=== PATIENT | male | born 1950 | race Caucasian/White ===

== ENCOUNTER 2017-08-20 20:30 | Outpatient (CLI) | payer BC | END 2017-08-20 20:31 | disposition home or self-care (01) | LOC: SLEEPLAB 20:30 | PROVIDERS: ATTEND Otolaryngology Plastic Surgery within the Head & Neck | DX: G47.33 Obstructive sleep apnea (adult) (pediatric) (principal); I10 Essential (primary) hypertension | CPT/HCPCS: 95811 ==

== ENCOUNTER 2017-08-22 10:34 | Day surgery (SDC) | payer BC ==
[2017-08-21 13:40] VITALS: BMI 27.1
--- NOTE | 2017-08-22 14:48 | OP ---
DATE OF PROCEDURE: 08/22/2017 PROCEDURE PERFORMED: Colonoscopy with snare polypectomy. PHYSICIAN: Rich Gamboa M.D. MEDICATIONS: Given by Anesthesiology department. PREOPERATIVE DIAGNOSIS: Screening. POSTOPERATIVE DIAGNOSES: 1. Two colon polyps, cecal and transverse, removed. 2. Otherwise normal colon exam. PROCEDURE IN DETAIL: Written consent was obtained prior to procedure. After adequate sedation, a re ctal exam was performed and was normal. Endoscope was advanced to the cecum. The quality of the bow el prep was good. In the cecum next to the appendiceal orifice, a 5 mm sessile polyp was noted and w as removed with a cold snare. The polyp was retrieved. The ileocecal valve, ascending colon, hepati c flexure, and transverse colon appeared normal. In the distal transverse colon, a 3 mm sessile poly p was noted and was removed with a cold snare and was retrieved. At the splenic flexure, descending colon, sigmoid colon, and rectosigmoid colon all appeared normal. Retroflexion was normal. The ernie ent tolerated the procedure well without any immediate complication. ASSESSMENT: 1. Cecal polyp and transverse colon polyp, status post polypectomy. 2. Otherwise normal colon exam. RECOMMENDATIONS: Await biopsy result.
[2017-08-22] MEDS ORDERED: Lidocaine 1% PF 5 ML VIAL ONE (16:56)
== END 2017-08-22 13:10 | disposition home or self-care (01) ==
LOC: SDC 10:34
PROVIDERS: ATTEND Internal Medicine Gastroenterology
PROC: 0DBH8ZX Excision of Cecum, Via Natural or Artificial Opening Endoscopic, Diagnostic (ICD-10-PCS; principal; 2017-08-22)
PROC: 0DBL8ZX Excision of Transverse Colon, Via Natural or Artificial Opening Endoscopic, Diagnostic (ICD-10-PCS; principal; 2017-08-22)
DX: Z12.11 Encounter for screening for malignant neoplasm of colon (principal); D12.3 Benign neoplasm of transverse colon; D12.0 Benign neoplasm of cecum; N48.6 Induration penis plastica; I10 Essential (primary) hypertension; E78.5 Hyperlipidemia, unspecified; M19.90 Unspecified osteoarthritis, unspecified site; K21.9 Gastro-esophageal reflux disease without esophagitis; Z79.82 Long term (current) use of aspirin; Z79.899 Other long term (current) drug therapy; Z90.89 Acquired absence of other organs; Z98.890 Other specified postprocedural states
CPT/HCPCS: 88305; J2001

== ENCOUNTER 2020-07-31 05:38 | Inpatient (IN) | payer MEDICARE, OTHER ==
[2020-07-25 12:31] VITALS: BMI 27.1
--- NOTE | 2020-07-28 11:51 | HP ---
HISTORY OF PRESENT ILLNESS: The patient is a 70-year-old male with a several year history of progressive problems with the left knee. He has had no injury. He has had progressive pain despite rest, restriction of activities, use of anti-inflammatory medication, and previous cortisone injection. The pain is now interfering with day-to-day activities including walking, getting dressed, and sleeping. PAST MEDICAL HISTORY: The patient is, otherwise, in good health. He has a history of thyroid replacement and hypertension. He has had previous laryngeal cancer approximately 3 years ago, which required surgery and postoperative radiation without recurrence. CURRENT MEDICATIONS: Include: 1. Levothyroxine. 2. Lisinopril. 3. Rosuvastatin. ALLERGIES: HE HAS NO KNOWN ALLERGIES. FAMILY HISTORY: Otherwise, unremarkable. SOCIAL HISTORY: Otherwise, unremarkable. REVIEW OF SYSTEMS: Otherwise, unremarkable. PHYSICAL EXAMINATION: GENERAL: Reveals a healthy male. HEENT: Unremarkable. NECK: Supple. CHEST: Clear. HEART: Regular rate and rhythm. ABDOMEN: Soft, nontender. RECTAL: Deferred. GENITOURINARY: Deferred. EXTREMITIES: Pertinent findings related to the left knee; there is mild varus. There is puffiness. No definite effusion. There is tenderness and crepitus over the medial joint line. Range of motion is 5 to 125 degrees. There is no instability. Neurovascular exam is intact. Pulses are 1+. He has a left antalgic gait. DIAGNOSTIC STUDIES: X-rays of the left knee reveal narrowing medially with minimal joint space remaining. IMPRESSION: 1. Degenerative arthritis, left knee. 2. History of hypertension. 3. History of thyroid replacement. 4. History of laryngeal cancer. PLAN: Left total knee replacement. The nature of the surgery, length of recovery, and potential complications such as infection, loss of motion, incomplete relief, thromboembolic phenomena, neurovascular injury and possible transfusion, and need for revision have been discussed in detail. Job ID: [id number]
[2020-07-31] MEDS ORDERED: Midazolam HCl 2 mg/2 ml Vial ONE (06:29)
[2020-07-31] MEDS ORDERED: Fentanyl 100 MCG/2 ML VIAL ONE ×2 (06:29→07:06)
[2020-07-31] MEDS ORDERED: Lidocaine 1% (PF) 30 ML VIAL ONE (06:29)
[2020-07-31] MEDS ORDERED: Sodium Chloride 0.9% 100 ML ONE ×2 (06:35→09:23)
[2020-07-31] MEDS ORDERED: Tranexamic Acid 1,000 MG/10 ML VIAL ONE ×2 (06:35→09:22)
[2020-07-31] MEDS ORDERED: Vancomycin 1.5 GRAM/300 ML BAG ONE (06:35)
[2020-07-31] MEDS ORDERED: Fentanyl 100 MCG/2 ML VIAL IV PRN (07:03)
[2020-07-31] MEDS ORDERED: Dexmedetomidine 200 MCG/2 ML VIAL ONE (07:07)
[2020-07-31] MEDS ORDERED: traMADol HCl 50 MG TAB PO PRN ×3 (07:15→10:38)
[2020-07-31] MEDS ORDERED: Zolpidem Tartrate 5 MG TAB PO PRN ×2 (07:15→10:38)
[2020-07-31] MEDS ORDERED: Ondansetron PF 4 MG/2 ML Vial IVP PRN ×2 (07:15→10:38)
[2020-07-31] MEDS ORDERED: HYDROcodone/Acetaminophen 10/325 mg Tablet PO PRN ×3 (07:15→10:38)
[2020-07-31] MEDS ORDERED: Promethazine HCl 25 MG/ML VIAL IM PRN (07:15)
[2020-07-31] MEDS ORDERED: Ropivacaine HCl/PF 250 ML in Premix Bag 1 BAG NERVE BLCK SCH (07:15)
[2020-07-31] MEDS ORDERED: Lidocaine 1% w/Epinephrine 1:100K 20 ML VIAL ONE (07:47)
[2020-07-31] MEDS ORDERED: Bupivacaine 0.25% HCL 30 ML VIAL ONE (07:47)
[2020-07-31] MEDS ORDERED: Tranexamic Acid 1,000 MG in Sodium Chloride 0.9% 100 ML IVPB SCH ×2 (09:15→10:38)
--- NOTE | 2020-07-31 09:41 | OP ---
DATE OF PROCEDURE: 07/31/2020 AIR CONDITIONING TECHNICIAN: ANDREW Driver. The marketing assistant manager co-surgeon was present through the entire procedure and was responsible for providing exposure, tissue retraction, and any necessary limb or tissue manipulation required to obtain necessary reduction or hardware placement. The marketing assistant manager co-surgeon also provided bleeding control, tissue closure, and suturing in conjunction with the primary surgeon. ANESTHESIA: General plus adductor canal and sciatic nerve blocks. PREOPERATIVE DIAGNOSIS: Degenerative arthritis, left knee. POSTOPERATIVE DIAGNOSIS: Degenerative arthritis, left knee. PROCEDURES PERFORMED: Left total knee replacement with computer-assisted navigation with cemented [place] [employer] components (#5 femoral component, #6 primary tibial baseplate with 11 mm CS plastic insert, and all-plastic A35 patellar component). DESCRIPTION OF PROCEDURE: After satisfactory anesthesia was induced in supine position, sequential compression device was placed on the nonoperative leg throughout the procedure. The left leg was then prepped and draped in routine sterile fashion. The leg was elevated and exsanguinated with an Esmarch bandage and the tourniquet inflated to 300 mmHg. A gently curved medial parapatellar incision was made. The subcutaneous tissues and bleeding points were controlled with Bovie cautery. Medial parapatellar arthrotomy was performed. Patella was dislocated laterally and portion of the fat pad was excised for exposure. There was marked degenerative arthritis of the knee especially medially with large areas of exposed bone. Meniscal remnants and osteophytes were removed. Using the [employer] pinless navigation system and the appropriate guides, the distal femoral and proximal tibial articular surfaces were excised with an oscillating saw to accept the trial components. It was felt that a #5 femoral component, #6 tibial baseplate with 11 mm CS plastic insert gave appropriate size, fit, stability, and correction of the preoperative deformity. The patellar articular surface was excised to accept all-plastic A35 patellar component. There was good range of motion and good patellar tracking. The trial components were removed. The knee was copiously irrigated with pulsatile lavage. The bony surfaces were thoroughly cleaned and dried. The permanent components were then cemented in a single stage using one package of cement premixed with 1 g of tobramycin powder. Excess cement was removed. There was again good fit and stability of the components. The knee was again copiously irrigated. The medial retinaculum and quadriceps mechanism were closed with interrupted #2 Vicryl and a running #2 Quill. The skin was infiltrated with a mixture of 30 mL of 0.25% Marcaine plain and 20 mL of 1% lidocaine with epinephrine. Subcutaneous tissues were closed with a running 0 Quill suture and the skin was closed with running subcuticular 3-0 Monoderm and SurgiSeal skin adhesive. A sterile bulky compressive dressing was applied. The tourniquet was deflated after 71 minutes. The foot promptly pinked up. Sequential compression device was applied to his operated leg and he was awakened and taken to the recovery room in stable condition. There were no apparent intraoperative complications. The estimated blood loss was less than 100 mL. Job ID: [id number]
[2020-07-31] MEDS ORDERED: Acetaminophen 325 MG TAB PO PRN (10:38)
[2020-07-31] MEDS ORDERED: Fentanyl 100 MCG/2 ML VIAL SLOW IVP PRN ×2 (10:38)
[2020-07-31] MEDS ORDERED: Promethazine HCl 25 MG/ML VIAL SLOW IVP PRN (10:38)
[2020-07-31] MEDS ORDERED: diphenhydrAMINE 25 MG CAP PO PRN (10:38)
--- NOTE | 2020-07-31 11:07 | RAD ---
LEFT KNEE 2 VIEWS: HISTORY: Total knee arthroplasty postop. FINDINGS/IMPRESSION: There are recent postop changes of total knee arthroplasty in good position and alignment. Soft tiss ue air is present. POS: AH
[2020-07-31] MEDS: Sodium Chloride 0.9% 1,000 ML IV SCH ×2 (11:59→20:57)
[2020-07-31] MEDS ORDERED: Ketorolac Tromethamine 30 MG/ML VIAL IVP SCH (12:00)
[2020-07-31] MEDS: Ketorolac Tromethamine 30 MG/ML VIAL IVP SCH ×3 (13:19→23:16)
[2020-07-31] MEDS ORDERED: PROPOFOL 200 MG/20 ML VIAL ONE (13:43)
[2020-07-31] MEDS ORDERED: Ondansetron PF 4 MG/2 ML Vial ONE (13:43)
[2020-07-31] MEDS ORDERED: Dexamethasone 20 MG/5 ML VIAL ONE (13:43)
[2020-07-31] MEDS ORDERED: Ropivacaine 0.2% HCl/PF (40 MG/20 ML VIAL) ONE (13:43)
[2020-07-31] MEDS ORDERED: Ketorolac Tromethamine 30 MG/ML VIAL ONE (13:43)
[2020-07-31] MEDS ORDERED: Bupivacaine HCl 0.5%/Epinephrine 1:200,000/PF 30 ml Vial ONE (13:43)
[2020-07-31] MEDS ORDERED: Glycopyrrolate 0.2 MG/ML 5 ML SYRINGE ONE (13:43)
[2020-07-31] MEDS ORDERED: ePHEDrine 50 MG/ML VIAL ONE (13:43)
[2020-07-31] MEDS ORDERED: Lidocaine 1% PF 5 ML VIAL ONE (13:43)
[2020-07-31] MEDS: CEFAZOLIN 2 GM in Premix Bag 1 BAG IVPB SCH ×2 (15:21→23:16)
[2020-07-31] MEDS ORDERED: Vancomycin 1.5 GRAM/300 ML BAG 1.5 GM in Premix Bag 1 BAG IVPB SCH (19:00)
[2020-07-31] MEDS ORDERED: Vancomycin HCl 1.5 GM in Sodium Chloride 0.9% 250 ML 300 ML IVPB SCH (19:00)
[2020-07-31] MEDS: Aspirin 81 mg Enteric Coated Tablet PO SCH (20:54)
[2020-07-31] MEDS: Rosuvastatin 20 MG TAB PO SCH (20:54)
[2020-07-31] MEDS: Senokot S 8.6-50 MG TAB PO SCH (20:54)
[2020-07-31] MEDS: Lisinopril 20 MG TAB PO SCH (20:54)
[2020-08-01] MEDS: Levothyroxine Sodium 25 MCG TAB PO SCH (05:16)
[2020-08-01] MEDS: Ketorolac Tromethamine 30 MG/ML VIAL IVP SCH ×4 (05:16→23:21)
[2020-08-01 05:56] LABS: Hemoglobin 12.3 g/dL (14.0-18.0); Mean Corpuscular HGB CONC 33.3 g/dL (32.0-36.0); Mean Corpuscular Hemoglobin 30.5 pg (27.0-31.0); Mean Corpuscular Volume 91.4 fL (78.0-98.0); Mean Platelet Volume 7.2 fL (7.4-10.4); Platelet Count 185 thou/uL (130-400); RBC Distribution Width 11.5 % (11.5-14.5); Red Blood Cell (RBC) Count 4.03 mill/uL (4.70-6.10); White Blood Cell (WBC) Count 15.2 thou/uL (4.8-10.8)
[2020-08-01] MEDS: Sodium Chloride 0.9% 1,000 ML IV SCH ×2 (07:23→18:16)
[2020-08-01] MEDS: Senokot S 8.6-50 MG TAB PO SCH ×2 (08:39→20:12)
[2020-08-01] MEDS: Aspirin 81 mg Enteric Coated Tablet PO SCH ×2 (08:39→20:12)
[2020-08-01] MEDS: Multivitamin W/ Minerals 1 TAB PO SCH (08:39)
[2020-08-01] MEDS: HYDROcodone/Acetaminophen 10/325 mg Tablet PO PRN (08:44)
[2020-08-01] MEDS ORDERED: hydrALAZINE 10 MG TAB PO PRN (12:06)
[2020-08-01] MEDS: Lisinopril 20 MG TAB PO SCH (20:12)
[2020-08-01] MEDS: Rosuvastatin 20 MG TAB PO SCH (20:12)
[2020-08-02] MEDS: HYDROcodone/Acetaminophen 10/325 mg Tablet PO PRN ×2 (03:50→08:36)
[2020-08-02] MEDS: Sodium Chloride 0.9% 1,000 ML IV SCH (03:54)
[2020-08-02] MEDS: Ketorolac Tromethamine 30 MG/ML VIAL IVP SCH (05:27)
[2020-08-02] MEDS: Levothyroxine Sodium 25 MCG TAB PO SCH (05:27)
[2020-08-02] MEDS: Multivitamin W/ Minerals 1 TAB PO SCH (08:36)
[2020-08-02] MEDS: Aspirin 81 mg Enteric Coated Tablet PO SCH (08:36)
[2020-08-02 11:43] VITALS: BP 157/77; TEMP 97.6
== END 2020-08-02 12:02 | disposition home or self-care (01) | DRG 470 ==
LOC: SDC 05:38 → SJJU 10:11
PROVIDERS: ADMIT Orthopaedic Surgery; ATTEND Orthopaedic Surgery
PROC: 0SRD0J9 Replacement of Left Knee Joint with Synthetic Substitute, Cemented, Open Approach (ICD-10-PCS; principal; 2020-07-31)
PROC: 8E0YXBZ Computer Assisted Procedure of Lower Extremity (ICD-10-PCS; 2020-07-31)
DX: M17.12 Unilateral primary osteoarthritis, left knee (principal); Z20.828 Contact with and (suspected) exposure to other viral communicable diseases; I10 Essential (primary) hypertension; Z79.890 Hormone replacement therapy; Z85.21 Personal history of malignant neoplasm of larynx; Z79.899 Other long term (current) drug therapy
CPT/HCPCS: 36415; 85027; 93005; 93010; C1713; C1776; J0690; J1100; J1885; J2001; J2250; J2405; J2704; J2795; J3010; J3370; J3490; S0020